=== PATIENT | male | born 1990 | race Caucasian/White ===

== ENCOUNTER 2019-09-29 00:36 | Emergency (ER) | payer BC, OTHER ==
[2019-09-29 00:44] VITALS: BP 115/64; PULSE 69; RESP 18; TEMP 97.9
[2019-09-29] MEDS ORDERED: PROPARACAINE 0.5% OPHTH DROPS 15 ML BTL RIGHT EYE STA (00:47)
[2019-09-29] MEDS ORDERED: FLUORESCEIN STRIPS 1 MG STRIP RIGHT EYE ONE (00:48)
[2019-09-29] MEDS ORDERED: IBUPROFEN 600 MG STARTER PACK 4 TAB BTL PO STA (00:59)
[2019-09-29] MEDS ORDERED: ACETAMINOPHEN TAB 325 MG TAB PO STA (00:59)
[2019-09-29] MEDS ORDERED: TOBRAMYCIN 0.3% OPHTH OINT 3.5 GM TUBE RIGHT EYE STA (00:59)
--- NOTE | 2019-09-29 01:02 | ED ---
Eye Problem HPI - General Chief complaint: Eye Problems Stated complaint: RT eye pain Time Seen by Provider: 09/29/19 00:47 Source: patient Mode of arrival: ambulatory Limitations: no limitations - History of Present Illness Initial comments: 29-year-old male patient presents to the emergency department today for evaluation of right eye pain, redness, blurriness. Patient states that around 1:00 this afternoon he started having pain to the area. States he called from work and took his contacts out to see if it would help. States the pain to his pain worse. Patient denies taking any medication for his symptoms. States he did use an [id number] eyedrop without relief. Denies fever or chills. Denies dizziness or weakness. He does wear contact lenses. - Related Data Home Medications Medication Instructions Recorded Confirmed No Known Home Medications 04/30/14 04/30/14 Allergies Allergy/AdvReac Type Severity Reaction Status Date / Time amoxicillin [Amoxicillin] Allergy Rash/Hives Verified 09/29/19 00:44 Review of Systems ROS Statement: Those systems with pertinent positive or pertinent negative responses have been documented in the HPI. ROS Other: All systems not noted in ROS Statement are negative. Past Medical History Past Medical History: Seizure Disorder Additional Past Medical History / Comment(s): Epilepsy History of Any Multi-Drug Resistant Organisms: None Reported Additional Past Surgical History / Comment(s): temporal lobe removed r/t seizures Past Psychological History: Depression Smoking Status: Current every day smoker Past Alcohol Use History: Occasional Past Drug Use History: None Reported General Exam Limitations: no limitations General appearance: alert, in no apparent distress, other (This is a well- developed, well-nourished adult male. Patient in no acute distress. Vital signs upon presentation are temperature 97.9F, pulse 69, respirations 18, blood pressure 115/64, pulse ox 99% on room air.) Eye exam: Present: PERRL, EOMI, scleral icterus (Right-sided), other (There is right conjunctival injection. Clear drainage noted. Fluorescein stain with Wood's lamp examination was performed and revealed an ulcer to the cornea around 7:00 between the pupil and iris. Negative Annita sign.). Absent: normal appearance, conjunctival injection, periorbital swelling ENT exam: Present: normal exam, normal oropharynx, mucous membranes moist Respiratory exam: Present: normal lung sounds bilaterally. Absent: respiratory distress, wheezes, rales, rhonchi, stridor Cardiovascular Exam: Present: regular rate, normal rhythm, normal heart sounds. Absent: systolic murmur, diastolic murmur, rubs, gallop, clicks Neurological exam: Present: alert, oriented X3, CN II-XII intact Psychiatric exam: Present: normal affect, normal mood Skin exam: Present: warm, dry, intact, normal color. Absent: rash Course Vital Signs 09/29/19 00:40 Temperature 97.9 F Pulse Rate 69 Respiratory 18 Rate Blood Pressure 115/64 O2 Sat by Pulse 99 Oximetry Medical Decision Making - Medical Decision Making 29-year-old male patient presents to the emergency department today for evaluation of right eye pain and redness. Physical examination reveals conjunctival injection, fluorescein stain with Wood's lamp examination was performed and showed evidence for corneal ulcer. Negative Annita sign. Patient will be given tobramycin ophthalmic ointment to use 4 times daily while awake. He is instructed to not wear his contact lenses until cleared by ophthalmology. Is instructed to follow-up with agriculture inspector for recheck tomorrow. Return parameters were discussed in detail. He verbalizes understanding and agrees with this plan. Disposition Clinical Impression: Corneal ulcer of right eye Disposition: HOME SELF-CARE Condition: Good Instructions (If sedation given, give patient instructions): Corneal Ulcer (ED) Additional Instructions: Use ointment to the right eye 4 times daily while awake. Take, Motrin for pain control. Follow-up with ophthalmology for further evaluation as soon as possible. Return to the emergency department immediately for any new, worsening, or concerning symptoms. Is patient prescribed a controlled substance at d/c from ED?: No Referrals: Eder Pimentel MD [STAFF PHYSICIAN] - 1-2 days Time of Disposition: 01:02
== END 2019-09-29 01:12 | disposition home or self-care (01) ==
LOC: EC 00:36
DX: H16.001 Unspecified corneal ulcer, right eye (principal); F17.200 Nicotine dependence, unspecified, uncomplicated; Z88.0 Allergy status to penicillin
CPT/HCPCS: 99283

== ENCOUNTER 2020-02-07 19:00 | Emergency (ER) | payer OTHER ==
[2020-02-07 19:12] VITALS: BP 130/69; PULSE 64; RESP 16
[2020-02-07 19:15] VITALS: TEMP 99.3
[2020-02-07] MEDS ORDERED: CLINDAMYCIN 150 MG CAP PO STA (19:41)
--- NOTE | 2020-02-07 19:41 | ED ---
ENT HPI - General Chief complaint: Dental/Oral Stated complaint: dental pain Time Seen by Provider: 02/07/20 19:08 Source: patient Mode of arrival: ambulatory Limitations: no limitations - History of Present Illness Initial comments: Patient is a 29-year-old male presenting to the emergency Department with complaints of left-sided dental pain that's been increasing over the past few weeks. Patient states he has pain and numbness tooth on the left side for the last few months. He states he does have a dentist appointment on February 22 for possible tooth extraction. Patient states last few days the pain has been increasing, ibuprofen is no longer working. He denies any fever, chills, nausea or vomiting. Denies any facial swelling. He has no further complaints at this time. Upon arrival to the ER he is afebrile, vitals are stable. - Related Data Previous Rx's Medication Instructions Recorded Clindamycin HCl 300 mg PO Q8H 7 Days #21 cap 02/07/20 Allergies Allergy/AdvReac Type Severity Reaction Status Date / Time amoxicillin [Amoxicillin] Allergy Rash/Hives Verified 02/07/20 19:30 Review of Systems ROS Statement: Those systems with pertinent positive or pertinent negative responses have been documented in the HPI. ROS Other: All systems not noted in ROS Statement are negative. Past Medical History Past Medical History: Seizure Disorder Additional Past Medical History / Comment(s): Epilepsy History of Any Multi-Drug Resistant Organisms: None Reported Additional Past Surgical History / Comment(s): temporal lobe removed r/t seizures Past Psychological History: Depression Smoking Status: Current every day smoker Past Alcohol Use History: None Reported, Occasional Past Drug Use History: None Reported General Exam - General Exam Comments Initial Comments: GENERAL: Patient is well-developed and well-nourished. Patient is nontoxic and in no acute distress. HEAD: Atraumatic, normocephalic. EYES: Pupils equal round and reactive to light, extraocular movements intact, sclera anicteric, conjunctiva are normal. Eyelids were unremarkable. ENT: TMs normal, nares patent, oropharynx clear without exudates. Moist mucous membranes. There is no facial swelling, he does have a fractured tooth on the left lower side, #18. There is no swelling or erythema of the gumline, no visible dental abscess seen. There is pain with compression of the tooth. NECK: Normal range of motion, supple without lymphadenopathy or JVD. LUNGS: Unlabored respirations. Breath sounds clear to auscultation bilaterally and equal. No wheezes rales or rhonchi. HEART: Regular rate and rhythm without murmurs, rubs or gallops. ABDOMEN: Soft, nontender, normoactive bowel sounds. No guarding, no rebound. No masses appreciated. : Deferred MUSCULOSKELETAL: Normal extremities with adequate strength and normal range of motion, no pitting or edema. No clubbing or cyanosis. NEUROLOGICAL: Patient is alert and oriented x 3. Normal speech, normal gait. PSYCH: Normal mood, normal affect. SKIN: Warm, Dry, normal turgor, no rashes or lesions noted. Limitations: no limitations Course Vital Signs 02/07/20 19:08 Temperature 99.3 F Pulse Rate 64 Respiratory 16 Rate Blood Pressure 130/69 O2 Sat by Pulse 95 Oximetry Medical Decision Making - Medical Decision Making Patient is a 29-year-old male here for left lower sided dental pain increasing over the past few days. He's had pain on and off for months. He does have a dentist appointment on February 22. There is no visible dental abscess, no facial swelling. He does have pain with palpation of the tooth. I will start patient on antibiotics and a pack of Tylenol 3's for discomfort. First dose of antibiotic given in the ER. We discussed alternating the Tylenol and ibuprofen for pain relief. Masses or use ice the area. He needs to follow up with his dentist. He is stable for discharge. He is in agreement this plan of care. Return parameters were discussed with the patient he verbalizes understanding. Disposition Clinical Impression: Toothache Disposition: HOME SELF-CARE Condition: Stable Instructions (If sedation given, give patient instructions): Toothache (ED) Additional Instructions: Please return to the Emergency Department if symptoms worsen or any other concerns. Take antibiotic as prescribed. Alternate the Tylenol 3's with ibuprofen for pain relief. May also use ice to the area. Follow-up with your dentist. Prescriptions: Clindamycin HCl 300 mg PO Q8H 7 Days #21 cap Is patient prescribed a controlled substance at d/c from ED?: No Referrals: None,Stated [Primary Care Provider] - 1-2 days
[2020-02-07] MEDS ORDERED: ACET/COD 300 MG/30 MG STARTER PACK 6 TAB BTL PO STA (19:42)
== END 2020-02-07 19:50 | disposition home or self-care (01) ==
LOC: EC 19:00
DX: K08.89 Other specified disorders of teeth and supporting structures (principal); S02.5XXA Fracture of tooth (traumatic), initial encounter for closed fracture; F17.200 Nicotine dependence, unspecified, uncomplicated; Z88.0 Allergy status to penicillin; X58.XXXA Exposure to other specified factors, initial encounter
CPT/HCPCS: 99282

== ENCOUNTER 2023-05-01 06:30 | Emergency (ER) | payer BC, OTHER ==
[2023-05-01 07:06] VITALS: RESP 16; TEMP 98.3
--- NOTE | 2023-05-01 07:28 | ED ---
Abdominal Pain HPI - General Chief Complaint: Chest Pain Stated Complaint: dizziness Time Seen by Provider: 05/01/23 06:50 Source: patient, RN notes reviewed Mode of arrival: ambulatory Limitations: no limitations - History of Present Illness Initial Comments: 32-year-old male presents emergency department chief complaint of epigastric, chest pain. Patient states started at work. He states the burning sensation feels her reflux. He has no prior cardiac disease he has not taken anything for the pain tonight. He states he has had some these intermittent episodes in which he normally just takes arez-kyz-ynjnwib medications. He states he was at work when this pain started. Denies any shortness of breath no fever chills cough cold symptoms. - Related Data Previous Rx's Medication Instructions Recorded clindamycin HCL [Clindamycin HCl] 300 mg PO Q8H 7 Days #21 cap 02/07/20 Allergies Allergy/AdvReac Type Severity Reaction Status Date / Time amoxicillin [Amoxicillin] Allergy Rash/Hives Verified 02/07/20 19:30 Review of Systems ROS Statement: Those systems with pertinent positive or pertinent negative responses have been documented in the HPI. ROS Other: All systems not noted in ROS Statement are negative. Past Medical History Past Medical History: Seizure Disorder Additional Past Medical History / Comment(s): Epilepsy History of Any Multi-Drug Resistant Organisms: None Reported Additional Past Surgical History / Comment(s): temporal lobe removed r/t seizures Past Psychological History: Depression Smoking Status: Current every day smoker Past Alcohol Use History: None Reported, Occasional Past Drug Use History: None Reported General Exam Limitations: no limitations General appearance: alert, in no apparent distress Head exam: Present: atraumatic, normocephalic, normal inspection Eye exam: Present: normal appearance, PERRL, EOMI. Absent: scleral icterus, conjunctival injection, periorbital swelling Neck exam: Present: normal inspection, full ROM. Absent: tenderness, meningismus, lymphadenopathy Respiratory exam: Present: normal lung sounds bilaterally. Absent: respiratory distress, wheezes, rales, rhonchi, stridor Cardiovascular Exam: Present: regular rate, normal rhythm, normal heart sounds. Absent: systolic murmur, diastolic murmur, rubs, gallop, clicks GI/Abdominal exam: Present: soft, tenderness (Epigastric), normal bowel sounds. Absent: distended, guarding, rebound, rigid Course Vital Signs 05/01/23 05/01/23 06:42 07:45 Temperature 98.3 F Pulse Rate 66 65 Respiratory 16 16 Rate Blood Pressure 103/67 115/72 O2 Sat by Pulse 96 99 Oximetry Medical Decision Making - Medical Decision Making Was pt. sent in by a medical professional or institution (WILY Winston, BELT PRESS OPERATOR, urgent care, hospital, or snf...) When possible be specific @ -[No] Did you speak to anyone other than the patient for history (EMS, parent, family, police, friend...)? What history was obtained from this source @ -[No] Did you review nursing and triage notes (agree or disagree)? Why? @ -[I reviewed and agree with nursing and triage notes] Were old charts reviewed (outside hosp., previous admission, EMS record, old EKG, old radiological studies, urgent care reports/EKG's, snf records)? Report findings @ -[No old charts were reviewed] Differential Diagnosis (chest pain, altered mental status, abdominal pain women, abdominal pain men, vaginal bleeding, weakness, fever, dyspnea, syncope, headache, dizziness, GI bleed, back pain, seizure, CVA, palpatations, mental health, musculoskeletal)? @ -Differential Abdominal Pain Men: Appendicitis, cholecystitis, diverticulosis, ischemic bowel, pancreatitis, hepatitis, UTI, gastroenteritis, AAA, incarcerated hernia, bowel obstruction, constipation, inflammatory bowel, hepatitis, peptic ulcer disease, splenic infarction, perforated viscus, testicular torsion, this is not meant to be an all-inclusive list EKG interpreted by me (3pts min.). @ -[As above] X-rays interpreted by me (1pt min.). @ -[Chest x-ray shows no acute cardiopulmonary process. CT interpreted by me (1pt min.). @ -[None done] U/S interpreted by me (1pt. min.). @ -[None done] What testing was considered but not performed or refused? (CT, X-rays, U/S, labs)? Why? @ -[None] What meds were considered but not given or refused? Why? @ -[None] Did you discuss the management of the patient with other professionals (professionals i.e. WILY Winston, BELT PRESS OPERATOR, lab, RT, psych nurse, social and human services assistant, vp customer development, teacher, access control officer, case loader operator)? Give summary @ -[No] Was smoking cessation discussed for >3mins.? @ -No Was critical care preformed (if so, how long)? @ -No Were there social determinants of health that impacted care today? How? (Homelessness, low income, unemployed, alcoholism, drug addiction, t ransportation, low edu. Level, literacy, decrease access to med. care, fdc, rehab)? @ -No Was there de-escalation of care discussed even if they declined (Discuss DNR or withdrawal of care, Hospice)? DNR status @ -No What co-morbidities impacted this encounter? (DM, HTN, Smoking, COPD, CAD, Cancer, CVA, ARF, Chemo, Hep., AIDS, mental health diagnosis, sleep apnea, morbid obesity)? @ -None Was patient admitted / discharged? Hospital course, mention meds given and route, prescriptions, significant lab abnormalities, going to OR and other pertinent info. @ -[Patient left AGAINST MEDICAL ADVICE Undiagnosed new problem with uncertain prognosis? @ -No Drug Therapy requiring intensive monitoring for toxicity (Heparin, Nitro, Insulin, Cardizem)? @ -No Were any procedures done? @ -No Diagnosis/symptom? @ -Abdominal pain Acute, or Chronic, or Acute on Chronic? @ -Acute Uncomplicated (without systemic symptoms) or Complicated (systemic symptoms)? @ -Uncomplicated Side effects of treatment? @ -No Exacerbation, Progression, or Severe Exacerbation? @ -No Poses a threat to life or bodily function? How? (Chest pain, USA, MS, pneumonia, PE, COPD, DKA, ARF, appy, cholecystitis, CVA, Diverticulitis, Homicidal, Suicidal, threat to staff... and all critical care pts) @ -No - Lab Data Result diagrams: 05/01/23 07:38 05/01/23 07:38 Lab Results 05/01/23 05/01/23 05/01/23 Range/Units 07:38 07:38 07:38 WBC 6.6 (3.8-10.6) k/uL RBC 5.34 (4.30-5.90) m/uL Hgb 16.0 (13.0-17.5) gm/dL Hct 46.7 (39.0-53.0) % MCV 87.5 (80.0-100.0) fL MCH 29.9 (25.0-35.0) pg MCHC 34.2 (31.0-37.0) g/dL RDW 12.2 (11.5-15.5) % Plt Count 203 (150-450) k/uL MPV 7.7 Neutrophils % 47 % Lymphocytes % 39 % Monocytes % 9 % Eosinophils % 3 % Basophils % 0 % Neutrophils # 3.1 (1.3-7.7) k/uL Lymphocytes # 2.6 (1.0-4.8) k/uL Monocytes # 0.6 (0-1.0) k/uL Eosinophils # 0.2 (0-0.7) k/uL Basophils # 0.0 (0-0.2) k/uL Sodium 139 (137-145) mmol/L Potassium 3.8 (3.5-5.1) mmol/L Chloride 108 H (98-107) mmol/L Carbon Dioxide 23 (22-30) mmol/L Anion Gap 8 mmol/L BUN 11 (9-20) mg/dL Creatinine 0.60 L (0.66-1.25) mg/dL Est GFR (CKD-EPI)AfAm >90 (>60 ml/min/1.73 sqM) Est GFR (CKD-EPI)NonAf >90 (>60 ml/min/1.73 sqM) Glucose 90 (74-99) mg/dL Calcium 9.2 (8.4-10.2) mg/dL Total Bilirubin 1.1 (0.2-1.3) mg/dL AST 26 (17-59) U/L ALT 16 (4-49) U/L Alkaline Phosphatase 65 (38-126) U/L Troponin I <0.012 (0.000-0.034) ng/mL Total Protein 6.6 (6.3-8.2) g/dL Albumin 4.2 (3.5-5.0) g/dL Lipase 61 (23-300) U/L - EKG Data -: EKG Interpreted by [facility] EKG Comments: EKG performed at 7: 27 sinus bradycardia rate of 53 MD 155 QRS 105 QT/QTc 415/399 Disposition Clinical Impression: Abdominal pain Disposition: LEFT AGAINST MEDICAL ADVICE Referrals: None,Stated [Primary Care Provider] - 1-2 days
[2023-05-01] MEDS: METOCLOPRAMIDE 5 MG/ML 2 ML VIAL IVP STA (07:36)
[2023-05-01] MEDS: MAG HYDROX/AL HYDROX/SIMETH 30 ML CUP PO STA (07:37)
[2023-05-01] MEDS: FAMOTIDINE 20 MG/2 ML VIAL IV STA (07:37)
--- NOTE | 2023-05-01 07:58 | XR ---
EXAMINATION TYPE: XR chest 2V DATE OF EXAM: 05/01/2023 7:52 AM CLINICAL INDICATION:Male, 32 years old with history of pain COMPARISON: Chest radiographs from 02/18/2014 TECHNIQUE: XR chest 2V Frontal and lateral views of the chest. FINDINGS: Lungs/Pleura: There is no evidence of pleural effusion, focal consolidation, or pneumothorax. Pulmonary vascularity: Unremarkable. Heart/mediastinum: Cardiomediastinal silhouette is unremarkable. Musculoskeletal: No acute osseous pathology. IMPRESSION: No acute cardiopulmonary disease/process.
[2023-05-01 08:06] LABS: ALT 16 U/L (4-49); AST 26 U/L (17-59); African American GFR (CKD) >90 (>60 ml/min/1.73 sqM); Albumin 4.2 g/dL (3.5-5.0); Alkaline Phosphatase 65 U/L (38-126); Anion Gap 8 mmol/L; Blood Urea Nitrogen 11 mg/dL (9-20); Calcium 9.2 mg/dL (8.4-10.2); Carbon Dioxide 23 mmol/L (22-30); Chloride 108 mmol/L (98-107); Glucose 90 mg/dL (74-99); Lipase 61 U/L (23-300); Non-African American GFR(CKD) >90 (>60 ml/min/1.73 sqM); Potassium 3.8 mmol/L (3.5-5.1); Sodium 139 mmol/L (137-145); Total Bilirubin 1.1 mg/dL (0.2-1.3); Total Protein 6.6 g/dL (6.3-8.2)
[2023-05-01 08:18] VITALS: BP 115/72; PULSE 65
[2023-05-01 08:25] LABS: Basophils % (A) 0 %; Eosinophils # (A) 0.2 k/uL (0-0.7); Eosinophils % (A) 3 %; HCT 46.7 % (39.0-53.0); Lymphocytes # (A) 2.6 k/uL (1.0-4.8); Lymphocytes % (A) 39 %; MCH 29.9 pg (25.0-35.0); MCHC 34.2 g/dL (31.0-37.0); MCV 87.5 fL (80.0-100.0); Mean Platelet Volume 7.7; Monocytes # (A) 0.6 k/uL (0-1.0); Monocytes % (A) 9 %; Neutrophils # (A) 3.1 k/uL (1.3-7.7); Neutrophils % (A) 47 %; Platelet Count 203 k/uL (150-450); RBC 5.34 m/uL (4.30-5.90); RDW 12.2 % (11.5-15.5); WBC 6.6 k/uL (3.8-10.6)
== END 2023-05-01 07:59 | disposition left against medical advice (07) ==
LOC: EC 06:30
DX: R10.13 Epigastric pain (principal); R00.1 Bradycardia, unspecified; F17.200 Nicotine dependence, unspecified, uncomplicated; Z88.0 Allergy status to penicillin; Z53.29 Procedure and treatment not carried out because of patient's decision for other reasons
CPT/HCPCS: 99285; 36415; 80053; 83690; 84484; 85025; 71046; 96374; 96375; J2765; J3490

== ENCOUNTER → 2023-06-28 | Outpatient (CLI) | payer OTHER ==
[2023-06-29 03:23] LABS: Thyroid Peroxidase Antibodies <9.0 U/mL (0.0-33.0)
--- NOTE | 2023-06-29 04:00 | US ---
EXAMINATION TYPE: US thyroid st tissue head/neck DATE OF EXAM: 06/28/2023 COMPARISON: NONE CLINICAL INDICATION: Male, 32 years old with history of E05.90 THYROTOXICOSIS, UNSP WITHOUT THYROTOXI C CRI; abn labs GLAND SIZE: Right Lobe: 5.5 x 1.9 x 1.6 cm Overall Parenchyma: homogeneous Left Lobe: 4.9 x 1.5 x 1.5 cm Overall Parenchyma: homogeneous Isthmus Thickness: 0.2 cm NODULES RIGHT: # of nodules measured on right: 1 1. 0.7 X 0.7 x 0.4 cm, mid , solid or almost completely solid, hypoechoic nodule, which is wider th an tall, with smooth margins, without echogenic foci. TR 4. 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 IMPRESSION: Subcentimeter right thyroid lobe TR 4 nodule. According to ACR TI-RADS, no follow-up or FNA is recomm ended.
== END | disposition home or self-care (01) ==
LOC: RADUSWWP 15:51
PROVIDERS: ATTEND Family Medicine
DX: E04.1 Nontoxic single thyroid nodule (principal); E05.90 Thyrotoxicosis, unspecified without thyrotoxic crisis or storm
CPT/HCPCS: 76536; 84432; 84481; 85652; 86376